=== PATIENT | female | born 1990 | race Caucasian/White ===

== ENCOUNTER 2023-07-16 23:13 | Emergency (ER) | payer MEDICAID ==
[~2023-07-16] VITALS: Ht 152.4 cm; Wt 66.7 kg
[2023-07-16] MEDS ORDERED: FAMOTIDINE 20 MG TABLET PO ONE (23:45)
[2023-07-16] MEDS ORDERED: DEXAMETHASONE 0.5 MG/5 ML LIQ UDC PO ONE (23:45)
[2023-07-16] MEDS ORDERED: diphenhydrAMINE 50 MG/1 ML VIAL IM ONE (23:45)
[2023-07-16] MEDS ORDERED: FAMOTIDINE 20 MG TABLET ONE (23:55)
[2023-07-16] MEDS ORDERED: DEXAMETHASONE SOD PHOSPHATE 10 MG INJ ONE (23:55)
[2023-07-16] MEDS ORDERED: diphenhydrAMINE 50 MG/1 ML VIAL ONE (23:55)
[2023-07-16] MEDS ORDERED: DEXAMETHASONE 5 MG/5 ML LIQUID UDC ONE (23:58)
[2023-07-17 00:01] LABS: BASOPHILS # (AUTO) 0.1 K/UL (0.0-0.2); BASOPHILS % (AUTO) 1.1 % (0.0-2.0); EOSINOPHILS # (AUTO) 0.6 K/uL (0.0-0.7); EOSINOPHILS % (AUTO) 5.2 % (0.0-7.0); HEMATOCRIT 38.5 % (31.2-41.9); HEMOGLOBIN 12.7 g/dL (10.9-14.3); LYMPHOCYTES # (AUTO) 3.1 K/uL (0.8-4.8); LYMPHOCYTES % (AUTO) 27.4 % (20.5-51.5); MEAN CORPUSCULAR HEMOGLOBIN 29.8 uug (24.7-32.8); MEAN CORPUSCULAR HGB CONC 33 g/dL (32.3-35.6); MEAN CORPUSCULAR VOLUME 90.3 fL (75.5-95.3); MONOCYTES # (AUTO) 0.8 K/uL (0.1-1.30); MONOCYTES % (AUTO) 7.2 % (0.0-11.0); NEUTROPHILS # (AUTO) 6.7 K/uL (1.8-8.9); NEUTROPHILS % (AUTO) 59.1 % (38.5-71.5); PLATELET COUNT (AUTO) 290 K/uL (179-408); RED BLOOD CELL COUNT(AUTO) 4.27 MIL/uL (3.63-4.92); WHITE BLOOD COUNT (AUTO) 11.3 K/uL (3.8-11.8)
[2023-07-17 00:13] LABS: DIFFERENTIAL COMMENT 1
[2023-07-17 00:20] LABS: CALCIUM 8.8 mg/dL (8.5-10.1); CREATININE 0.6 mg/dL (0.6-1.3); POTASSIUM 3.2 mmol/L (3.5-5.1)
[2023-07-17 00:25] LABS: ALBUMIN 3.9 g/dL (3.4-5.0); BILIRUBIN,TOTAL 0.1 mg/dL (0.2-1.0); TOTAL PROTEIN, SERUM 7.4 g/dL (6.4-8.2)
[2023-07-17] MEDS ORDERED: POTASSIUM CHLORIDE 20 MEQ TAB.PRT.SR PO ONE (00:30)
[2023-07-17] MEDS ORDERED: POTASSIUM CHLORIDE 20 MEQ TAB.PRT.SR ONE (00:38)
[2023-07-17] MEDS ORDERED: EPIN0.3P3 IM (02:07)
[2023-07-17] MEDS ORDERED: DIPH25TA25 PO (02:07)
[2023-07-17 02:14] VITALS: BP 145/87; TEMP 209.1; O2SAT 96
== END 2023-07-17 02:16 | disposition home or self-care (01) ==
LOC: ER 23:18
DX: T78.3XXA Angioneurotic edema, initial encounter (principal); R22.0 Localized swelling, mass and lump, head; E87.6 Hypokalemia; I10 Essential (primary) hypertension; Z79.899 Other long term (current) drug therapy
CPT/HCPCS: 99284; 80053; 85025; 36415; 96372; J1100; J8540; J1200; A4606; A4663

== ENCOUNTER 2023-09-28 19:49 | Emergency (ER) | payer MEDICAID ==
[~2023-09-28] VITALS: Ht 152.4 cm; Wt 66.7 kg
[~2023-09-28 19:49] MED LIST: DIPH25TA25 PO; EPIN0.3P3 IM
[2023-09-28] MEDS ORDERED: TETRACAINE HCL 0.5% OPHT DROP 2 ML BOTTLE ONE (20:35)
[2023-09-28] MEDS ORDERED: chlorproMAZINE 50 MG/2 ML AMPUL ONE (20:36)
[2023-09-28] MEDS ORDERED: FLUORESCEIN SODIUM 1 MG STRIP ONE (20:39)
[2023-09-28] MEDS: FLUORESCEIN SODIUM 1 MG STRIP OP ONE (20:40)
[2023-09-28] MEDS: TETRACAINE HCL 0.5% OPHT DROP 2 ML BOTTLE OP ONE (20:40)
[2023-09-28] MEDS ORDERED: GENT5DRO4 EACHEYE (21:23)
[2023-09-28] MEDS ORDERED: AMOX-430 PO (21:23)
[2023-09-28 21:42] VITALS: BP 141/87; TEMP 98; O2SAT 98
== END 2023-09-28 21:30 | disposition home or self-care (01) ==
LOC: ER 19:53
DX: H00.013 Hordeolum externum right eye, unspecified eyelid (principal); Z79.899 Other long term (current) drug therapy
CPT/HCPCS: A4606; A4663; J3230

== ENCOUNTER 2023-10-11 18:59 | Emergency (ER) | payer MEDICAID ==
[~2023-10-11] VITALS: Ht 147.3 cm; Wt 65.8 kg
[~2023-10-11 18:59] MED LIST changes: +AMOX-430 PO; +GENT5DRO4 EACHEYE
[2023-10-11] MEDS ORDERED: diphenhydrAMINE 50 MG/1 ML VIAL ONE (19:26)
[2023-10-11] MEDS ORDERED: predniSONE 50 MG TABLET ONE (19:26)
[2023-10-11] MEDS: diphenhydrAMINE 50 MG/1 ML VIAL IM ONE (19:43)
[2023-10-11] MEDS: predniSONE 50 MG TABLET PO ONE (19:43)
[2023-10-11 19:46] LABS: CREATININE 0.7 mg/dL (0.6-1.3); POTASSIUM 3.4 mmol/L (3.5-5.1)
[2023-10-11 19:48] LABS: BASOPHILS # (AUTO) 0.1 K/UL (0.0-0.2); BASOPHILS % (AUTO) 0.5 % (0.0-2.0); DIFFERENTIAL COMMENT 0; EOSINOPHILS # (AUTO) 0.4 K/uL (0.0-0.7); EOSINOPHILS % (AUTO) 3.5 % (0.0-7.0); HEMATOCRIT 38.2 % (31.2-41.9); LYMPHOCYTES # (AUTO) 2.7 K/uL (0.8-4.8); LYMPHOCYTES % (AUTO) 24.3 % (20.5-51.5); MEAN CORPUSCULAR HEMOGLOBIN 30.3 uug (24.7-32.8); MEAN CORPUSCULAR HGB CONC 34 g/dL (32.3-35.6); MEAN CORPUSCULAR VOLUME 89.1 fL (75.5-95.3); MONOCYTES % (AUTO) 8.5 % (0.0-11.0); NEUTROPHILS # (AUTO) 7.2 K/uL (1.8-8.9); NEUTROPHILS % (AUTO) 63.2 % (38.5-71.5); PLATELET COUNT (AUTO) 302 K/uL (179-408); RED BLOOD CELL COUNT(AUTO) 4.29 MIL/uL (3.63-4.92); RED CELL DISTRIBUTION WIDTH 12.9 % (12.3-17.7); WHITE BLOOD COUNT (AUTO) 11.3 K/uL (3.8-11.8)
[2023-10-11 19:52] LABS: ALBUMIN 3.7 g/dL (3.4-5.0); BILIRUBIN,TOTAL 0.2 mg/dL (0.2-1.0); TOTAL PROTEIN, SERUM 7.4 g/dL (6.4-8.2)
[2023-10-11] MEDS ORDERED: DIPH25TA62 PO (20:27)
[2023-10-11] MEDS ORDERED: POTASSIUM CHLORIDE 20 MEQ TAB.PRT.SR ONE (20:27)
[2023-10-11] MEDS ORDERED: PRED20TA PO (20:27)
[2023-10-11] MEDS: POTASSIUM CHLORIDE 20 MEQ TAB.PRT.SR PO ONE (20:29)
[2023-10-11 20:32] VITALS: BP 138/78; TEMP 98.5; O2SAT 99
== END 2023-10-11 20:32 | disposition home or self-care (01) ==
LOC: ER 19:01
DX: L25.9 Unspecified contact dermatitis, unspecified cause (principal); R22.0 Localized swelling, mass and lump, head; Z79.899 Other long term (current) drug therapy
CPT/HCPCS: 99283; 80053; 85025; 36415; 96372; J7512; J1200; A4606; A4663

== ENCOUNTER 2023-11-16 21:20 | Emergency (ER) | payer MEDICAID ==
[~2023-11-16] VITALS: Ht 152.4 cm; Wt 65.8 kg
[~2023-11-16 21:20] MED LIST changes: +DIPH25TA62 PO; +PRED20TA PO
[2023-11-16 22:22] LABS: BASOPHILS # (AUTO) 0.1 K/UL (0.0-0.2); BASOPHILS % (AUTO) 0.5 % (0.0-2.0); EOSINOPHILS # (AUTO) 0.3 K/uL (0.0-0.7); EOSINOPHILS % (AUTO) 2.3 % (0.0-7.0); HEMOGLOBIN 13.5 g/dL (10.9-14.3); LYMPHOCYTES # (AUTO) 1.6 K/uL (0.8-4.8); LYMPHOCYTES % (AUTO) 13.6 % (20.5-51.5); MEAN CORPUSCULAR HGB CONC 34 g/dL (32.3-35.6); MEAN CORPUSCULAR VOLUME 88.8 fL (75.5-95.3); MONOCYTES % (AUTO) 8.8 % (0.0-11.0); NEUTROPHILS % (AUTO) 74.8 % (38.5-71.5); PLATELET COUNT (AUTO) 297 K/uL (179-408); RED BLOOD CELL COUNT(AUTO) 4.51 MIL/uL (3.63-4.92); RED CELL DISTRIBUTION WIDTH 13.1 % (12.3-17.7)
[2023-11-16 22:31] LABS: CREATININE 0.7 mg/dL (0.6-1.3); POTASSIUM 3.2 mmol/L (3.5-5.1)
[2023-11-16 22:37] LABS: ALBUMIN 3.8 g/dL (3.4-5.0); BILIRUBIN,TOTAL 1.5 mg/dL (0.2-1.0); TOTAL PROTEIN, SERUM 7.7 g/dL (6.4-8.2)
[2023-11-16] MEDS ORDERED: ONDANSETRON 4 MG/2 ML VIAL ONE (22:38)
[2023-11-16] MEDS ORDERED: KETOROLAC TROMETHAMINE 30 MG INJ ONE (22:38)
[2023-11-16 22:39] LABS: DIFFERENTIAL COMMENT 1
[2023-11-16] MEDS: ONDANSETRON 4 MG/2 ML VIAL IV ONE (22:42)
[2023-11-16] MEDS: KETOROLAC TROMETHAMINE 30 MG INJ IVP ONE (22:43)
[2023-11-16] MEDS ORDERED: POTASSIUM CHLORIDE 20 MEQ TAB.PRT.SR ONE (22:44)
[2023-11-16] MEDS: POTASSIUM CHLORIDE 20 MEQ TAB.PRT.SR PO ONE (22:47)
[2023-11-16 22:55] LABS: *BILIRUBIN,URIN 1+ (NEGATIVE); *COLOR,URINE YELLOW (YELLOW); *KETONES,URINE NEGATIVE (NEGATIVE); *PROTEIN,URINE NEGATIVE (NEGATIVE); *UROBILINOGEN,URINE 0.2 E.U./dl (NORMAL); LEUKOCYTE ESTERASE ,URINE NEGATIVE (NEGATIVE); NITRITE, URINE NEGATIVE (NEGATIVE); PH,URINE 8.5 (5.0-8.0); UGLUCOSE NEGATIVE (NEGATIVE)
[2023-11-16 22:57] LABS: *BLOOD, URINE TRACE INTACT (NEGATIVE); *CLARITY,URINE CLOUDY (CLEAR); *URINE HCG, QUAL NEGATIVE (NEGATIVE)
[2023-11-16 23:26] LABS: BACTERIA,URINE NONE SEEN /HPF (NONE SEEN); RBC,URINE 0-3 /HPF (0-3); SQUAMOUS EPITHELIAL CELL,UR MANY /HPF (NONE SEEN); WBC,URINE 0-3 /HPF (0-3)
[2023-11-16 23:27] LABS: URINE AMORPHOUS PHOSPHATES MODERATE /HPF
[2023-11-17] MEDS ORDERED: MORPHINE SULFATE 4 MG/1 ML DISP.SYRIN ONE (09:50)
[2023-11-17] MEDS: ONDANSETRON 4 MG/2 ML VIAL IV ONE (09:50)
[2023-11-17] MEDS ORDERED: ONDANSETRON 4 MG/2 ML VIAL ONE (09:50)
[2023-11-17] MEDS: MORPHINE SULFATE 4 MG/1 ML DISP.SYRIN IV ONE (09:57)
[2023-11-17 11:45] VITALS: O2SAT 98
== END 2023-11-17 12:21 | disposition short-term general hospital (02) ==
LOC: ER 21:22
DX: R10.13 Epigastric pain (principal); R10.2 Pelvic and perineal pain; Z79.899 Other long term (current) drug therapy
CPT/HCPCS: 99285; 74176; 96374; 76705; 96375 ×2; 80053; 81001; 84703; 83690; 85025; 36415; 83605; 96376; J1885; J2405 ×2; J2270; A4606; A4663

== ENCOUNTER 2024-06-29 16:49 | Emergency (ER) | payer MEDICAID ==
[~2024-06-29] VITALS: Ht 152.4 cm; Wt 65.8 kg
[2024-06-29 19:03] LABS: BASOPHILS # (AUTO) 0.1 K/UL (0.0-0.2); BASOPHILS % (AUTO) 0.7 % (0.0-2.0); EOSINOPHILS # (AUTO) 0.2 K/uL (0.0-0.7); EOSINOPHILS % (AUTO) 2.6 % (0.0-7.0); HEMATOCRIT 39.4 % (31.2-41.9); LYMPHOCYTES # (AUTO) 2.9 K/uL (0.8-4.8); LYMPHOCYTES % (AUTO) 30.4 % (20.5-51.5); MEAN CORPUSCULAR HEMOGLOBIN 30.4 uug (24.7-32.8); MEAN CORPUSCULAR HGB CONC 33 g/dL (32.3-35.6); MEAN CORPUSCULAR VOLUME 91.7 fL (75.5-95.3); NEUTROPHILS # (AUTO) 5.3 K/uL (1.8-8.9); NEUTROPHILS % (AUTO) 55.3 % (38.5-71.5); PLATELET COUNT (AUTO) 258 K/uL (179-408); RED CELL DISTRIBUTION WIDTH 12.9 % (12.3-17.7); WHITE BLOOD COUNT (AUTO) 9.5 K/uL (3.8-11.8)
[2024-06-29 19:08] LABS: DIFFERENTIAL COMMENT 1
[2024-06-29 19:18] LABS: ALBUMIN 3.7 g/dL (3.4-5.0); BILIRUBIN,DIRECT 0.2 mg/dL (0.0-0.2); BILIRUBIN,TOTAL 0.3 mg/dL (0.2-1.0); CALCIUM 9.1 mg/dL (8.5-10.1); CREATININE 0.6 mg/dL (0.6-1.3); POTASSIUM 3.8 mmol/L (3.5-5.1); TOTAL PROTEIN, SERUM 7.2 g/dL (6.4-8.2)
[2024-06-29 20:32] LABS: *URINE HCG, QUAL NEGATIVE (NEGATIVE)
[2024-06-29] MEDS ORDERED: ACET-73 PO (21:21)
[2024-06-29] MEDS ORDERED: LANS30CA54 PO (21:21)
[2024-06-29 21:45] VITALS: BP 140/78; TEMP 98.6; O2SAT 100
== END 2024-06-29 21:45 | disposition home or self-care (01) ==
LOC: ER 16:50
DX: R10.13 Epigastric pain (principal); R07.9 Chest pain, unspecified; R06.00 Dyspnea, unspecified; Z79.52 Long term (current) use of systemic steroids; Z79.899 Other long term (current) drug therapy
CPT/HCPCS: 36415; 71045; 83690; 84703; 85025; A4606; A4663